=== PATIENT | female | born 1965 | race Caucasian/White ===

== ENCOUNTER → 2019-10-15 | Outpatient (CLI) | payer BC ==
[~2019-10-15] MED LIST: CRESTOR10 MG PO; CRESTOR20 MG PO; DEMEROL50 MG PO; GLUCOPHAGE500 MG PO; INVOKANA100 MG PO; JANUVIA100 MG PO; LIMBITROL DS T1 EACH PO; PHENERGAN12.5 M1 PO; SINGULAIR 10 MG10 M1 PO; TORADOL 10 MG T10 MG PO; ZETIA10 MG PO; ZOFRAN8 MG PO
== END ==
LOC: M.RAD 10:44
DX: Z12.31 Encounter for screening mammogram for malignant neoplasm of breast (principal)

== ENCOUNTER → 2019-10-16 | Outpatient (CLI) | payer BC | LOC: M.ULTRA 12:27 | DX: I73.9 Peripheral vascular disease, unspecified (principal); Z00.00 Encounter for general adult medical examination without abnormal findings; Z78.0 Asymptomatic menopausal state ==